=== PATIENT | male | born 1960 | race African-American/Black ===

== ENCOUNTER 2020-08-14 16:10 | Outpatient (CLI) | payer OTHER | END 2020-08-14 16:11 | disposition home or self-care (01) | LOC: CSHRAD 16:10 | PROVIDERS: ATTEND Psychiatry & Neurology Neurology | DX: R07.9 Chest pain, unspecified (principal); I25.2 Old myocardial infarction | CPT/HCPCS: 71046 ==

== ENCOUNTER 2024-02-10 10:52 | Emergency (ER) | payer OTHER ==
[2024-02-10 12:34] LABS: #Basophils 0.01 10x3/uL (0.0-0.2); #Monocytes 0.54 10x3/uL (0.0-1.1); %Basophils 0.1 % (0.0-2.0); %Lymphocytes 3.2 % (18.0-47.0); %Monocytes 4.1 % (0.0-10.0); Hematocrit 45.3 % (38.8-50.0); Hemoglobin 13.7 g/dL (13.5-17.5); Mean Corpuscular HGB CONC 30.2 g/dL (32.0-36.0); Mean Corpuscular Hemoglobin 22.5 pg (27.0-33.0); Mean Corpuscular Volume 74.3 fL (81.2-95.1); Mean Platelet Volume 10.1 fL (7.4-10.4); Platelet Count 275 10x3/uL (150-450); RBC Distribution Width 18.7 % (11.5-14.5); White Blood Cell (WBC) Count 13.2 10x3/uL (3.5-10.5)
[2024-02-10 12:51] LABS: ALT (SGPT) 23 U/L (8-55); AST (SGOT) 24 U/L (5-34); Albumin 3.5 g/dL (3.4-4.8); Alkaline Phosphatase 136 U/L (40-110); Anion Gap 20 mmol/L (10-20); BUN (Urea Nitrogen) 27 mg/dL (8.4-25.7); Bilirubin, Total 0.8 mg/dL (0.2-1.2); Calc. Creatinine Clearance 0 mL/min (70-130); Calcium 9.1 mg/dL (7.8-10.44); Carbon Dioxide 16 mmol/L (23-31); Chloride 105 mmol/L (98-107); Estimated GFR 38; Globulin 4.9 g/dL (2.4-3.5); Glucose 201 mg/dL (80-115); Lipase 38 U/L (8-78); Potassium 4.5 mmol/L (3.5-5.1); Protein, Total 8.4 g/dL (5.8-8.1); Sodium 136 mmol/L (136-145)
[2024-02-10] MEDS ORDERED: Piperacillin/Tazobactam 4.5 GM VIAL ONE (13:47)
[2024-02-10 14:15] LABS: Bilirubin Neg (Negative); Blood, Urine 10 (Negative); Clarity Clear (Clear); Glucose, Urine (Dipstick) >=1000 mg/dL (Negative); Ketone, Urine 5 mg/dL (Negative); Leukocyte Negative (Negative); Nitrite Negative (Negative); Protein, Urine (Dipstick) 30 mg/dl (Neg-Trace); Specific Gravity, Urine 1.015 (1.005-1.030); Urobilinogen Normal mg/dL (Less than 2)
[2024-02-10 14:25] LABS: Bacteria/HPF None Seen HPF (None Seen); CAUTI Indications for Culture Pelvic or flank pain; RBC/HPF 0-3 HPF (0-3); Squamous Epithelial 0-3 HPF (0-3); WBC/HPF None Seen HPF (0-3)
[2024-02-10 14:26] LABS: Urine Culture Reflex No No
[2024-02-10] MEDS ORDERED: Iopamidol 300 61% 100 ML VIAL FS ONE (14:50)
[2024-02-10] MEDS ORDERED: Ondansetron PF 4 MG/2 ML Vial ONE (15:00)
[2024-02-10] MEDS ORDERED: Promethazine HCl 25 MG in Sodium Chloride 0.9% 50 ML IVPB SCH (16:15)
[2024-02-10 19:08] LABS: Anion Gap 17 mmol/L (10-20); BUN (Urea Nitrogen) 26 mg/dL (8.4-25.7); Calc. Creatinine Clearance 0 mL/min (70-130); Calcium 8.9 mg/dL (7.8-10.44); Carbon Dioxide 20 mmol/L (23-31); Chloride 105 mmol/L (98-107); Estimated GFR 39; Glucose 181 mg/dL (80-115); Potassium 4.4 mmol/L (3.5-5.1); Sodium 138 mmol/L (136-145)
[2024-02-10] MEDS ORDERED: Loperamide HCl 2 MG CAP ONE (22:26)
[2024-02-11 00:43] LABS: Anion Gap 18 mmol/L (10-20); BUN (Urea Nitrogen) 22 mg/dL (8.4-25.7); Calc. Creatinine Clearance 0 mL/min (70-130); Calcium 8.8 mg/dL (7.8-10.44); Carbon Dioxide 15 mmol/L (23-31); Chloride 109 mmol/L (98-107); Estimated GFR 46; Glucose 173 mg/dL (80-115); Sodium 138 mmol/L (136-145)
[2024-02-11] MEDS ORDERED: Ondansetron PF 4 MG/2 ML Vial ONE (02:11)
== END 2024-02-11 03:50 | disposition short-term general hospital (02) ==
LOC: CSHERS 10:52
DX: N17.9 Acute kidney failure, unspecified (principal); E87.20 Acidosis, unspecified; E86.0 Dehydration; F17.210 Nicotine dependence, cigarettes, uncomplicated; I25.2 Old myocardial infarction; E11.9 Type 2 diabetes mellitus without complications; I11.0 Hypertensive heart disease with heart failure; I50.9 Heart failure, unspecified
CPT/HCPCS: 36415; 71045; 74177; 80048; 80053; 81001; 82010; 83605; 83690; 83880; 85025; 87040; 87428; 93005; 96374; 96375; 96376; J2405; J2543; J2550; Q9967